=== PATIENT | male | born 1965 | race Caucasian/White ===

== ENCOUNTER 2025-02-06 16:22 | Emergency (ER) | payer OTHER | END 2025-02-06 17:36 | disposition home or self-care (01) | LOC: JP.ED 16:22 | DX: S60.211A Contusion of right wrist, initial encounter (principal); Z79.82 Long term (current) use of aspirin; Z79.899 Other long term (current) drug therapy; W18.39XA Other fall on same level, initial encounter; Y93.89 Activity, other specified | CPT/HCPCS: 73100; 99283; A9270; 99282 ==